=== PATIENT | female | born 1940 | race Caucasian/White ===

== ENCOUNTER 2021-11-08 15:25 | Outpatient (RCR) | payer MEDICARE, OTHER | END 2021-11-10 | disposition home or self-care (01) | LOC: COL.CR | DX: J44.9 Chronic obstructive pulmonary disease, unspecified (principal) ==

== ENCOUNTER 2021-11-23 17:45 | Emergency (ER) | payer MEDICARE, OTHER ==
[~2021-11-23] VITALS: Ht 160 cm; Wt 75.9 kg
[2021-11-23 17:52] VITALS: TEMP 98.2
[2021-11-23 18:27] LABS: BASO # 0.1 K/mm3 (0.0-0.2); BASO % 0.6 % (0.0-2.0); EOS # 0.6 K/mm3 (0.0-0.7); GRAN # 8.5 K/mm3 (1.4-6.5); GRAN % 71.9 % (42.2-75.2); HEMATOCRIT 32.6 % (37.0-47.0); HEMOGLOBIN 10.2 g/dl (12.5-16.0); LYMPH # 1.7 K/mm3 (1.2-3.4); LYMPH % 14.2 % (20.0-51.0); MEAN CELL VOLUME 95 fl (80.0-100.0); MEAN CORPUSCULAR HEMOGLOBIN 30 pg (27-31); MEAN CORPUSCULAR HGB CONC 31 g/dl (33.0-37.0); MEAN PLATELET VOLUME 11.5 fl (7.4-10.4); MONO # 0.9 K/mm3 (0.1-0.6); PLATELET COUNT 268 K/mm3 (130-400); RED BLOOD COUNT 3.43 M/mm3 (4.10-5.30); REDCELL DISTRIBUTION WIDTH-CV 13.2 % (11.5-14.5)
[2021-11-23 18:31] LABS: INR 1.2 (0.8-3.0); PROTHROMBIN TIME 13.9 SECONDS (9.7-12.8)
[2021-11-23] MEDS ORDERED: SYNTHROID0.05 MG/TA PO (18:38)
[2021-11-23] MEDS ORDERED: LASIX 40MG TABL40 MG PO (18:39)
[2021-11-23] MEDS ORDERED: KAPSPARGO SPRI100 MG PO (18:39)
[2021-11-23] MEDS ORDERED: XARELTO15 MG PO (18:39)
[2021-11-23] MEDS ORDERED: LIPITOR 40MG TA40 MG PO (18:40)
[2021-11-23] MEDS ORDERED: NITROSTAT0.4 MG/TAB SL (18:40)
[2021-11-23] MEDS ORDERED: NEURONTIN300 MG/CAP PO (18:41)
[2021-11-23] MEDS ORDERED: COZAAR 50MG50 MG/TAB PO (18:41)
[2021-11-23] MEDS ORDERED: ASPIRIN 81M81 MG/TA2 PO (18:41)
[2021-11-23] MEDS ORDERED: TRELEGY ELLIPT1 EACH IH (18:42)
[2021-11-23] MEDS ORDERED: ALBUTEROL0.83 MG/ML IH (18:42)
[2021-11-23] MEDS ORDERED: ANORO IH (18:42)
[2021-11-23 18:49] LABS: BILIRUBIN,TOTAL 0.4 mg/dL (0.2-1.2); CALCIUM 9.9 mg/dL (8.4-10.2); CREATININE, serum 1.99 mg/dL (0.57-1.11); POTASSIUM 4.6 mmol/L (3.5-4.5); TOTAL PROTEIN 6.5 gm/dL (6.2-8.1)
[2021-11-23 19:51] VITALS: BP 126/73; PULSE 58
== END 2021-11-23 20:10 | disposition home or self-care (01) ==
LOC: COL.ER 17:45
PROVIDERS: Physician Assistant
DX: K92.1 Melena (principal); J44.9 Chronic obstructive pulmonary disease, unspecified; Z99.81 Dependence on supplemental oxygen; Z87.891 Personal history of nicotine dependence
CPT/HCPCS: J7030

== ENCOUNTER 2021-11-26 14:25 | Outpatient (RCR) | payer MEDICARE, OTHER ==
[~2021-11-26 14:25] MED LIST: ALBUTEROL0.83 MG/ML IH; ANORO IH; ASPIRIN 81M81 MG/TA2 PO; COZAAR 50MG50 MG/TAB PO; KAPSPARGO SPRI100 MG PO; LASIX 40MG TABL40 MG PO; LIPITOR 40MG TA40 MG PO; NEURONTIN300 MG/CAP PO; NITROSTAT0.4 MG/TAB SL; SYNTHROID0.05 MG/TA PO; TRELEGY ELLIPT1 EACH IH; XARELTO15 MG PO
[2021-11-27] MEDS ORDERED: BASAGLAR K100 UNIT/1 SQ (19:18)
[2021-11-27] MEDS ORDERED: HUMALOGKP50/50 SQ (19:18)
[2021-11-27] MEDS ORDERED: HUMALOG100 U/ML SQ (19:19)
[2021-11-27] MEDS ORDERED: TRULICITY4.5 MG/0.5 SQ (19:19)
== END 2021-12-03 07:13 | disposition home or self-care (01) ==
LOC: COL.CR 14:25
DX: J44.9 Chronic obstructive pulmonary disease, unspecified (principal)
CPT/HCPCS: J0330; J2370; J2704

== ENCOUNTER 2021-11-27 14:53 | Inpatient (IN) | payer MEDICARE, OTHER ==
[~2021-11-27] VITALS: Ht 160 cm; Wt 83.2 kg
[2021-11-27 15:49] LABS: BASO % 0.5 % (0.0-2.0); EOS # 0.4 K/mm3 (0.0-0.7); EOS % 4.9 % (0.0-4.0); GRAN # 6.1 K/mm3 (1.4-6.5); GRAN % 69.5 % (42.2-75.2); LYMPH # 1.5 K/mm3 (1.2-3.4); LYMPH % 17.4 % (20.0-51.0); MEAN CELL VOLUME 97 fl (80.0-100.0); MEAN CORPUSCULAR HGB CONC 31 g/dl (33.0-37.0); MEAN PLATELET VOLUME 11.4 fl (7.4-10.4); MONO # 0.7 K/mm3 (0.1-0.6); MONO % 7.5 % (1.7-9.3); PLATELET COUNT 227 K/mm3 (130-400); RED BLOOD COUNT 2.59 M/mm3 (4.10-5.30); REDCELL DISTRIBUTION WIDTH-CV 13.6 % (11.5-14.5)
[2021-11-27 15:50] LABS: HEMATOCRIT 25.2 % (37.0-47.0); HEMOGLOBIN 7.8 g/dl (12.5-16.0); MEAN CORPUSCULAR HEMOGLOBIN 30 pg (27-31)
[2021-11-27 16:03] LABS: INR 1.3 (0.8-3.0); PROTHROMBIN TIME 14.5 SECONDS (9.7-12.8)
[2021-11-27 16:06] LABS: BILIRUBIN,TOTAL 0.3 mg/dL (0.2-1.2); CALCIUM 9.3 mg/dL (8.4-10.2); CREATININE, serum 1.7 mg/dL (0.57-1.11); POTASSIUM 4.7 mmol/L (3.5-4.5); TOTAL PROTEIN 5.9 gm/dL (6.2-8.1)
[2021-11-27] MEDS ORDERED: HUMALOGKP50/50 SQ (19:18)
[2021-11-27] MEDS ORDERED: BASAGLAR K100 UNIT/1 SQ (19:18)
[2021-11-27] MEDS ORDERED: TRULICITY4.5 MG/0.5 SQ (19:19)
[2021-11-27] MEDS ORDERED: HUMALOG100 U/ML SQ (19:19)
[2021-11-27 20:17] VITALS: BP 108/46; PULSE 56; TEMP 97.5
[2021-11-27 23:31] VITALS: BP 123/48; PULSE 65; TEMP 97.9
[2021-11-28] VITALS (7 sets, daily range): BP systolic 107–128; BP diastolic 34–95; PULSE 51–65; TEMP 97.4–98.7
[2021-11-28 00:37] LABS: HEMATOCRIT 23.6 % (37.0-47.0); HEMOGLOBIN 7.2 g/dl (12.5-16.0)
[2021-11-28 00:49] LABS: CALCIUM 8.9 mg/dL (8.4-10.2); CREATININE, serum 1.67 mg/dL (0.57-1.11); POTASSIUM 4.3 mmol/L (3.5-4.5)
--- NOTE | 2021-11-28 06:01 | NUR ---
END OF SHIFT: PATIENT RESTED QUIETLY THIS SHIFT. PATIENT RECEIVED NO PRN MEDICATIONS. PATIENT HAD EPISODE WHERE PATIENT FELT BLOOD SUGAR WAS LOW. ACCUCHECK TAKEN AND BLOOD SUGAR WITHIN NORMAL LIMITS. PATIENT NOTED TO BE BRADYCARDIC ALL NIGHT. PATIENT DENIED FEELING DIZZY OR LIGHTHEADED. PATIENT NPO AT MIDNIGHT FOR POSSIBLE DIAGNOSTIC PROCEDURES.
[2021-11-28 06:10] LABS: BASO % 0.4 % (0.0-2.0); EOS # 0.6 K/mm3 (0.0-0.7); EOS % 7.4 % (0.0-4.0); GRAN % 65.3 % (42.2-75.2); LYMPH # 1.5 K/mm3 (1.2-3.4); LYMPH % 19.3 % (20.0-51.0); MEAN CELL VOLUME 97 fl (80.0-100.0); MEAN CORPUSCULAR HGB CONC 31 g/dl (33.0-37.0); MEAN PLATELET VOLUME 11.8 fl (7.4-10.4); MONO # 0.6 K/mm3 (0.1-0.6); MONO % 7.3 % (1.7-9.3); PLATELET COUNT 203 K/mm3 (130-400); RED BLOOD COUNT 2.42 M/mm3 (4.10-5.30); REDCELL DISTRIBUTION WIDTH-CV 13.9 % (11.5-14.5)
[2021-11-28 06:31] LABS: HEMATOCRIT 23.5 % (37.0-47.0); HEMOGLOBIN 7.2 g/dl (12.5-16.0); MEAN CORPUSCULAR HEMOGLOBIN 30 pg (27-31)
--- NOTE | 2021-11-28 09:35 | NUR ---
Alarm Security Or Surveillance Monitor met with patient to discuss discharge planning. Patient lives in [place] with her , Geo (ph#[phone]) and advised she moved here from [place] in April. Patient sees Dr. Siddiqi for primary care and gets her medications from [facility] in [facility]. Patient reports some of her medications are expensive so she is working on applying for assistance through the medication manufacturers, which she had set up in [place]. Patient uses home oxygen from [facility] and also has a rollator at home, although she reports she seldom uses it. Patient is mostly independent with ADLS but reports her does help her bathe. Patient states she believes she has DPOA-HC that designates her , Geo. Patient plans to return home at time of discharge. Discharge Plan: Home
--- NOTE | 2021-11-28 12:01 | NUR ---
PATIENT ALERT AND ORIENTED X4. VSS. PATIENT DENIES PAIN. PATIENT NPO DUE TO EGD THIS AFTERNOON. NS RUNNING AT 125ML/HOUR IN LEFT HAND. CONSENT SIGNED AND ON CHART. PATIENT ON 2L O2 PER NC. PATIENT RESTING IN BED WITH CALL LIGHT NEAR.
--- NOTE | 2021-11-28 12:42 | NUR ---
Initial visit; Patient thanked Hides Inspector for looking in on her and offering prayer and God's blessings. Hides Inspector will keep patient in her prayers and follow up while Ashanti is a patient.
--- NOTE | 2021-11-28 13:07 | NUR ---
PATIENT OFF OF FLOOR FOR EGD
[2021-11-28 19:19] LABS: HEMATOCRIT 24.6 % (37.0-47.0); HEMOGLOBIN 7.4 g/dl (12.5-16.0)
--- NOTE | 2021-11-28 20:00 | NUR ---
PT IN BED, DRINKING GOLYTELY PREP. HAS OXYGEN ON AT 2L/NC, CHRONIC. SHORT OF BREATH WITH ACTIVITY. IV SITE TO LEFT FOREARM, FLUSHES WELL. WILL BE NPO AT MIDNIGHT.
[2021-11-29] VITALS (7 sets, daily range): BP systolic 100–149; BP diastolic 35–64; PULSE 57–71; TEMP 97.5–98.7
--- NOTE | 2021-11-29 | NUR ---
PT NPO EXCEPT BOWEL PREP.
--- NOTE | 2021-11-29 03:12 | NUR ---
PT REPORTS NAUSEA. ZOFRAN 4MG IVP GIVEN. HAS IV SITE TO LEFT FOREARM, FLUSHES WITHOUT PROBLEM.
--- NOTE | 2021-11-29 03:15 | NUR ---
PT UP TO BSC, REPORTS NAUSEA, HAVING LOOSE STOOLS FROM COLON PREP, WATER STILL DK RED/BROWN. ENCOURAGED PT TO KEEP DRINKING PREP.
--- NOTE | 2021-11-29 05:06 | NUR ---
NOTIFIED DR INFANTE OF PTS PREP RESULTS, WILL PUSH PTS COLONOSCOPY TO END MORNING. NOTIFIED OCCUP THER GURWINDER GRANDE.
--- NOTE | 2021-11-29 05:54 | NUR ---
INFORMED PT OF NEW TIME FOR COLONOSCOPY AND SHE NEEDS TO HAVE PREP COMPLETED BY 0900, PT REPORTS DIFFICULTY BREATHING WITH ALL THE ACTIVITY OF GETTING UP TO THE BSC. OXYGEN ON AT 2.5L.
--- NOTE | 2021-11-29 06:01 | NUR ---
PT UP TO BSC, HAS SMALL INCONTINENCE OF STOOL IN PANTIES.
[2021-11-29 06:12] LABS: BASO % 0.2 % (0.0-2.0); EOS # 0.6 K/mm3 (0.0-0.7); EOS % 5.1 % (0.0-4.0); GRAN # 9.7 K/mm3 (1.4-6.5); GRAN % 78.7 % (42.2-75.2); LYMPH % 8.2 % (20.0-51.0); MEAN CELL VOLUME 100 fl (80.0-100.0); MEAN CORPUSCULAR HGB CONC 31 g/dl (33.0-37.0); MEAN PLATELET VOLUME 11.9 fl (7.4-10.4); MONO # 0.9 K/mm3 (0.1-0.6); MONO % 7.2 % (1.7-9.3); PLATELET COUNT 197 K/mm3 (130-400); RED BLOOD COUNT 2.35 M/mm3 (4.10-5.30); REDCELL DISTRIBUTION WIDTH-CV 14.3 % (11.5-14.5)
[2021-11-29 06:28] LABS: HEMATOCRIT 23.5 % (37.0-47.0); HEMOGLOBIN 7.2 g/dl (12.5-16.0); MEAN CORPUSCULAR HEMOGLOBIN 31 pg (27-31)
[2021-11-29 06:30] LABS: CALCIUM 8.6 mg/dL (8.4-10.2); CREATININE, serum 1.41 mg/dL (0.57-1.11); POTASSIUM 4.6 mmol/L (3.5-4.5)
--- NOTE | 2021-11-29 11:36 | NUR ---
PATIENT OFF OF FLOOR FOR PROCEDURE
--- NOTE | 2021-11-29 12:05 | NUR ---
PATIENT ALERT AND ORIENTED X4. VSS. PATIENT ON 4L PER NC. PATIENT FINISHING BOWEL PREP. PATIENT DENIES PAIN AT THIS TIME. IV TO LEFT WRIST FLUSHES WELL. PATIENT RESTING IN BED WITH CALL LIGHT NEAR.
--- NOTE | 2021-11-29 21:36 | NUR ---
Patient assessed around 2014. Patient drowsy, but awakens easily to verbal stimuli. Denies pain and discomfort. On oxygen at 4 L/min via NC. Continues to have shortness of breath with exertion. LS CTA in upper lobes, diminished in lwoer. Patient voices no questions, needs, or concerns at this time. In bed with call light within reach.
--- NOTE | 2021-11-29 22:40 | NUR ---
Patient with increased SOB after using bedside commode at about 2215. SPO2 75% on oxygen at 4 L/min via NC. Increased to 15 L, put on high flow nasal cannula. Notified RT and SIMONE Castro. SPO2 increased to 90s after about 3 minutes, titrated down on oxygen to 6 L/min. Gloria in to see patient, new order for Lasix 20 mg IV. IV site to left wrist painful. New one started to right forearm, and given Lasix per orders. Purewick put in place to decrease exertion. New order for CXR, called Radiology and notified of order. Patient in bed with call light within reach. Voices no further questions, needs, or concerns at this time.
[2021-11-30] VITALS (453 sets, daily range): BP systolic 101–146; BP diastolic 35–65; PULSE 58–80; TEMP 98.4–100.2; O2SAT 76–100
[2021-11-30 05:50] LABS: ARTERIAL BLD GAS O2 SATURATION 93.7 % (92-100); ARTERIAL BLD GAS TCO2 CT 38.8; ARTERIAL BLOOD GAS BASE EXCESS 6.8 (-2-2); ARTERIAL BLOOD GAS HCO3 35.9 meq/L (22-26); ARTERIAL BLOOD GAS PO2 75.8 mmHg (80-100)
[2021-11-30 05:51] LABS: ARTERIAL BLOOD GAS PCO2 93.1 mmHg (35-45)
[2021-11-30 05:57] LABS: COLLECTION METHOD CATHETER
[2021-11-30 06:07] LABS: INR 1.1 (0.8-3.0); PROTHROMBIN TIME 12.1 SECONDS (9.7-12.8)
[2021-11-30 06:08] LABS: BASO % 0.2 % (0.0-2.0); EOS # 0.2 K/mm3 (0.0-0.7); EOS % 1.7 % (0.0-4.0); GRAN # 7.6 K/mm3 (1.4-6.5); GRAN % 78.8 % (42.2-75.2); LYMPH # 1.1 K/mm3 (1.2-3.4); LYMPH % 11.3 % (20.0-51.0); MEAN CELL VOLUME 101 fl (80.0-100.0); MEAN CORPUSCULAR HGB CONC 30 g/dl (33.0-37.0); MEAN PLATELET VOLUME 11.1 fl (7.4-10.4); MONO # 0.7 K/mm3 (0.1-0.6); MONO % 7.1 % (1.7-9.3); PLATELET COUNT 232 K/mm3 (130-400); REDCELL DISTRIBUTION WIDTH-CV 14.4 % (11.5-14.5)
[2021-11-30 06:22] LABS: MUCOUS Present (NOT PRESENT); SQUAMOUS EPITHELIAL 0-2 /hpf (0-10); URINE BACTERIA Rare /hpf (NONE SEEN); URINE RBC 0-2 /hpf (0-2)
[2021-11-30 06:25] LABS: URINE APPEARANCE Clear (CLEAR/HAZY); URINE COLOR Yellow (YELLOW)
[2021-11-30 06:26] LABS: URINE BLOOD Negative (NEGATIVE); URINE GLUCOSE Negative (NEGATIVE); URINE KETONE Negative (NEGATIVE); URINE NITRATE Negative (NEGATIVE); URINE PROTEIN(semi-quant) Negative (NEGATIVE); URINE UROBILINOGEN 0.2 E.U/dL (0.2-1.0)
[2021-11-30 06:35] LABS: CALCIUM 8.7 mg/dL (8.4-10.2); CREATININE, serum 1.55 mg/dL (0.57-1.11); MAGNESIUM 2.1 mg/dL (1.6-2.6); POTASSIUM 4.7 mmol/L (3.5-4.5)
[2021-11-30 06:38] LABS: HEMATOCRIT 22.3 % (37.0-47.0); HEMOGLOBIN 6.6 g/dl (12.5-16.0); MEAN CORPUSCULAR HEMOGLOBIN 30 pg (27-31)
--- NOTE | 2021-11-30 06:39 | NUR ---
Patient with increased drowsyness, only saying 1-3 words, increased work of breathing. VSS. BS ok. Called SIMONE Castro called and updated. New orders received. Joe placed due to minimal urine output, 350 out. Orders for EKG: no changes from previous. CT ordered, but cancelled after ABG results back with CO2 in the 90s. Patient put on BIPAP. SIMONE Castro called and spoke to Geo, phone number . Updated on patient stauts. Asked about intubation, and stated that he was ok with intubation for short term for patient. Hemoglobin back at 6.6 this morning. Order for 1 unit of blood. Patient in bed with call light within reach. Bed alarm on.
[2021-11-30 08:20] LABS: ARTERIAL BLD GAS O2 SATURATION 90.8 % (92-100); ARTERIAL BLD GAS TCO2 CT 37.5; ARTERIAL BLOOD GAS BASE EXCESS 6.2 (-2-2); ARTERIAL BLOOD GAS HCO3 34.9 meq/L (22-26); ARTERIAL BLOOD GAS pH 7.23 (7.35-7.45)
[2021-11-30 08:24] LABS: ARTERIAL BLOOD GAS PCO2 85.3 mmHg (35-45)
[2021-11-30 12:02] LABS: HEMATOCRIT 25.4 % (37.0-47.0); HEMOGLOBIN 7.6 g/dl (12.5-16.0)
--- NOTE | 2021-11-30 12:17 | NUR ---
Discussed code status with patient's and DPOA. Patient is a DNR/DNI per DPOA.
--- NOTE | 2021-11-30 12:40 | NUR ---
PT ARRIVED TO ICU 7 FROM SURGICAL WITH HARJINDER PACKER, RT AND LIFE SKILLS WORKER. PT ON BIPAP 28/11. PT OPENS EYES TO VERBAL & PHYSICAL STIMULI, FALLS BACK TO SLEEP. PT HOOKED UP TO ICU MONITORS. AND SON AT BEDSIDE. ASSESSMENT COMPLETED.
[2021-11-30 15:42] LABS: ARTERIAL BLOOD GAS HCO3 33.3 meq/L (22-26); ARTERIAL BLOOD GAS PCO2 72.9 mmHg (35-45); ARTERIAL BLOOD GAS pH 7.27 (7.35-7.45)
[2021-11-30 15:43] LABS: ARTERIAL BLD GAS O2 SATURATION 92.2 % (92-100); ARTERIAL BLD GAS TCO2 CT 35.6; ARTERIAL BLOOD GAS BASE EXCESS 5.5 (-2-2)
--- NOTE | 2021-11-30 20:24 | NUR ---
GAVE HAND OFF REPORT TO DUANE GRANDE. PT TO BE TRANDFERED TO ROOM 308
[2021-11-30 20:35] LABS: HEMATOCRIT 24.2 % (37.0-47.0); HEMOGLOBIN 7.4 g/dl (12.5-16.0)
--- NOTE | 2021-11-30 21:36 | NUR ---
PATIENT ARRIVED BY BED AND TRANSFERRED TO BED ASSISTED BY ICU. PATIENT IS UNRESPONSIVE TO ANY COMMUNICATION FROM THIS NURSE; UNABLE TO VERIFY MEDICATIONS AND ALLERGIES. PATIENT IS ON BPAP AT 18/8 AND TOLERATING WELL WITH O2 AT 95%. PATIENT MOANS IN RESPONSE TO VERBAL AND TOUCH STIMULATION. PATIENT HAS NOT OPENED EYES FOR THIS NURSE.
--- NOTE | 2021-11-30 21:58 | NUR ---
PATIENT REMAINS UNRESPSONSIVE TO NURSE ASESSSMENT AND QUESTIONS. PATIENT IS AROUSABLE BUT CLOSES EYES WHEN SPEAKING DIRECTLY TO HER.
[2021-12-01 03:08] LABS: ARTERIAL BLD GAS O2 SATURATION 98.6 % (92-100); ARTERIAL BLD GAS TCO2 CT 35.2; ARTERIAL BLOOD GAS HCO3 33.1 meq/L (22-26); ARTERIAL BLOOD GAS pH 7.31 (7.35-7.45)
[2021-12-01 03:10] LABS: ARTERIAL BLOOD GAS PCO2 67.3 mmHg (35-45)
[2021-12-01 03:11] LABS: ARTERIAL BLOOD GAS PO2 133.1 mmHg (80-100)
[2021-12-01 04:34] VITALS: BP 123/40; PULSE 63; TEMP 99.6
--- NOTE | 2021-12-01 04:50 | NUR ---
PATIENT BIPAP MACHINE KEEPS ALARMING. THIS NURSE FINDS PATIENT ATTEMPTING TO TAKE MASK OFF OF FACE. THIS NURSE GIVES PATIENT EDUCAITON ON IMPORTANCE OF KEEPING MASK ON AND HANDS AWAY FROM MASK, TO WHICH PATIENT REPLIED "OKAY" but CONTINUES TO PULL ON MASK. PATIENT DOES NOT OPEN EYES WHEN SPOKEN TO. PATIENT ENCOURAGED AGAIN TO KEEP FINGERS OUT OF MASK. CALL LIGHT IS WITHIN REACH OF PATIENT AND PATIENT ENCOURAGED TO CALL WITH ANY NEEDS OR CONCERNS.
--- NOTE | 2021-12-01 05:31 | NUR ---
PATIENT IS RESTING QUIETLY IN BED WITH EYES CLOSED AND NO SIGNS OF PAIN OR CONCERNS. PATIENT HAS KEPT HANDS AWAY FROM BIPAP MASK SINCE LAST NOTE. PATIENT HAS CALL LIGHT WITHIN REACH.
[2021-12-01 06:08] LABS: BASO % 0.1 % (0.0-2.0); EOS # 0.2 K/mm3 (0.0-0.7); EOS % 2.2 % (0.0-4.0); GRAN # 5.2 K/mm3 (1.4-6.5); GRAN % 75.3 % (42.2-75.2); LYMPH # 0.9 K/mm3 (1.2-3.4); LYMPH % 13.2 % (20.0-51.0); MEAN CELL VOLUME 102 fl (80.0-100.0); MEAN CORPUSCULAR HGB CONC 30 g/dl (33.0-37.0); MEAN PLATELET VOLUME 11.6 fl (7.4-10.4); MONO # 0.6 K/mm3 (0.1-0.6); MONO % 8.8 % (1.7-9.3); PLATELET COUNT 182 K/mm3 (130-400); RED BLOOD COUNT 2.39 M/mm3 (4.10-5.30)
[2021-12-01 06:14] LABS: HEMATOCRIT 24.4 % (37.0-47.0); HEMOGLOBIN 7.2 g/dl (12.5-16.0); MEAN CORPUSCULAR HEMOGLOBIN 30 pg (27-31)
[2021-12-01 06:51] LABS: ALBUMIN 2.7 gm/dL (3.4-4.8); CALCIUM 9.1 mg/dL (8.4-10.2); CREATININE, serum 1.64 mg/dL (0.57-1.11); MAGNESIUM 2.3 mg/dL (1.6-2.6); PHOSPHOROUS 2.7 mg/dL (2.3-4.7); POTASSIUM 4.6 mmol/L (3.5-4.5)
[2021-12-01 07:48] VITALS: BP 157/79; PULSE 59; TEMP 98.5
--- NOTE | 2021-12-01 08:41 | NUR ---
PT RESTING IN BED. PO MORNING MEDICATIONS HELD DUE TO NPO. SHIFT ASSESSMENT COMPLETED. PT CURRENTLY BREATHING ON BIPAP. PT AROUSABLE, OPENS EYES TO SPEECH, GRUNTS IN RESPONSE TO SOME QUESTIONS. PT DOES NOT FOLLOW VERBAL COMMANDS, NO HAND SITE ENGINEER OR BLE MOVEMENT. MIDDLETON DRAINING CLEAR YELLOW URINE. WILL CONTINUE TO MONITOR.
[2021-12-01 11:29] VITALS: BP 140/49; PULSE 69; TEMP 98.7
--- NOTE | 2021-12-01 13:17 | NUR ---
RT CALLED TO BEDSIDE FOR ASSISTANCE ON BIPAP INTOLERANCE. PT BEGAN REMOVING THE BIPAP DUE TO A "SORE EAR" AND FEELING MORE RESPONSIVE. ADVISED AT LEAST 16 HOURS OF BIPAP USAGE, WHICH CAN BE DONE DURING THE NIGHT. WILL PROMOTE BIPAP USAGE AT NIGHT TO PATIENT/PATIENT FAMILY AND SUPERVISOR GROUNDS RT.
[2021-12-01 15:17] VITALS: BP 137/33; PULSE 70; TEMP 97.4
--- NOTE | 2021-12-01 18:53 | NUR ---
PATIENT LAYING IN BED ON BIPAP AT THIS TIME. DENIES PAIN, NEEDS OR CONCERNS AT THIS TIME. CALL LIGHT IS WITHIN IN REACH OF PATIENT AND PATIENT IS ENCOUARGED TO CALL WITH ANY NEEDS OR CONCERNS.
--- NOTE | 2021-12-01 19:23 | NUR ---
TX GIVEN INLINE WITH BIPAP, TOLERATED WELL. FIO2 DECREASED TO 40% AT THIS TIME AND TOLERATING WELL. MASK ADJUSTED FOR MINIMAL LEAK.
[2021-12-01 21:18] VITALS: BP 126/55; PULSE 67; TEMP 98.8
[2021-12-01 23:55] VITALS: BP 110/46; PULSE 64; TEMP 98.6
[2021-12-02 05:24] VITALS: BP 130/73; PULSE 62; TEMP 97.4
--- NOTE | 2021-12-02 08:04 | NUR ---
PT LAYING IN BED. MORNING MEDICATIONS GIVEN. SHIFT ASSESSMENT COMPLETED. PT ANSWERING QUESTIONS APPROPRIATELY AND FOLLOWING COMMANDS. PT REPORTING PAIN AND DISCOMFORT, YET GRABS RAILS WHEN NURSING STAFF ATTEMPTS TO REPOSITION. PT WAS BREATHING ON 6L OXYMASK UPON ASSESSMENT BUT STATES SHE FEELS SHE CANNOT CATCH BREATH, RT NOTIFIED AND PLANS TO PLACE PT BACK ON BIPAP. MIDDLETON CATHETER DRAINING WELL. WILL CONTINUE TO MONITOR.
[2021-12-02 08:22] VITALS: BP 163/40; PULSE 71; TEMP 97.7
--- NOTE | 2021-12-02 09:54 | NUR ---
PT COMPLAINING OF PAIN TO BACK. ATTEMPTED TO GIVE PT TYEONOL PER eMAR. PT HAVING DIFFICULTY TAKING DRINKS DUE TO HER MOUTH BEING TOO DRY. SHE STATES SHE "GIVES UP." DR. NORRIS NOTIFIED, THIS RN GIVEN ORDERS TO CONSULT PALLIATIVE CARE, NAS NOTIFIED. WILL AWAIT FURTHER ORDERS.
--- NOTE | 2021-12-02 10:06 | NUR ---
Met with patient, her , and children and bedside. Patient attempted to sit up at side of bed with oxymask and SpO2 dropped significantly. Patient helped back to right side with BiPAP on and SpO2 rebounded to 100%. Discussed with family options like [facility] or comfort care/hospice. They confirmed patient is DNR/DNI but would like to see if she is a [facility] candidate before deciding anything else. Primary RN and SW notified.
[2021-12-02 11:17] VITALS: BP 185/40; PULSE 71; TEMP 97.4
--- NOTE | 2021-12-02 12:09 | NUR ---
Primary nurse asked that I talk with family and patient about hospice options as she is voicing her wishes to stop treatment. Family tearful and not very talkative but open to looking at hospice options. Provided MCR list of hospice agencies in [place] as well as vendor pamphlets for them each. Provided my contact information as well.
--- NOTE | 2021-12-02 13:39 | NUR ---
Instructional Technologist collaborated with Hospitalist who requested a [facility] Evaluation. SW contacted Jaylon at [facility] and faxed a referral. Jaylon advised that patient meets criteria. Palliative consult placed and Lilian Palliative RN advised that patient and family are discussing placement at [facility] vs hospice options. IZA will continue to follow and updated Jaylon that palliative consult placed. Jaylon to continue to follow.
--- NOTE | 2021-12-02 14:48 | NUR ---
Checked in on at bedside. Patient sleeping upon entry to room. states that if they decide on hospice, it will need to be in a facility as he cannot care for her at home. states that the grandchildren are coming in this evening and he will discuss his thought on moving to comfort care with his children at that time. States he hates to see the patient in so much pain. Advised him to let staff know if he feels she needs more medications and again offered to answer any questions that arise. Current plan is to talk again tomorrow about [facility] versus hospice/comfort care.
--- NOTE | 2021-12-02 19:00 | NUR ---
PT IS LAYING IN BED AT THIS TIME WITH THE BIPAP ON. PT IS NOT FIGHTING THE BIPAP AND IS RESTING COMFORTABLY. THE PATIENT'S IS AT BEDSIDE AND WILL STAY THE NIGHT WITH HER THIS EVENING THEY ARE LEANING TOWARD COMFORT CARE TOMORROW.
[2021-12-02 20:00] VITALS: BP 142/41; PULSE 58; TEMP 98.3
--- NOTE | 2021-12-02 21:00 | NUR ---
Pt has medications due, however the family at bedside is refusing all medications for the patient. The patient is minimally responsive at this time. Bipap in place.
[2021-12-03 00:01] VITALS: BP 147/36; PULSE 60; TEMP 98.2
--- NOTE | 2021-12-03 01:59 | NUR ---
PT HAS BEEN SLEEPING COMFORTABLY. HAS BEEN AT BEDSIDE THROUGH THE NIGHT. DECLINES PATIENT CARES D/T PATIENT SLEEPING. FAMILY IS PLANNING ON MAKING THE PATIENT COMFORT CARE THIS MORNING AFTER DOCTOR ROUNDS.
[2021-12-03 04:40] VITALS: BP 139/48; PULSE 60; TEMP 98.1
--- NOTE | 2021-12-03 05:56 | NUR ---
PT'S FAMILY AT BEDSIDE. THE PATIENT IS FAR MORE ALERT AND SPEAKING THAN SHE HAS BEEN IN A FEW DAYS. SHE IS ON 55L AIRVO AT THIS TIME, AND THE FAMILY IS ENJOYING BEING WITH HER. PLANS FOR [facility] VS [facility] TO BE MADE THIS MORNING. IT SHOULD BE NOTED THAT THE WHO WAS AT BEDSIDE THROUGH THE NIGHT REFUSED MEDICATIONS AND VITAL SIGNS AND BLOOD SUGARS ON THE PATIENT'S BEHALF. NO OTHER CONCERNS AT THIS TIME. FAMILY REMAINS AT BEDSIDE.
[2021-12-03 07:45] VITALS: BP 124/34
--- NOTE | 2021-12-03 08:59 | NUR ---
Met with patient and family at bedside. They confirmed patient would like to transition to comfort care and hospice. Family would like [facility] but is open to other options as necessary. Will discuss with SW to provide those options. Care team updated on decision for comfort care as well.
--- NOTE | 2021-12-03 09:25 | NUR ---
Clinicals sent via secure email to [facility] as requested from phone call; no immediate opening but will essentially put patient on list. Spoke with son at bedside. Patient on phone with family so not ready to remove airvo yet but will let us know. Son asked about room and board cost for [facility] and [facility]. SW looking into that.
--- NOTE | 2021-12-03 10:33 | NUR ---
PER RN, WE ARE PROCEEDING WITH COMFORT CARE MEASURES. AIRVO WAS REMOVED ABOUT 0950, AND COMFORT CARE MEDICATIONS WERE ADMINISTERED. 2L WAS PLACED ON PATIENT FOR COMFORT.
--- NOTE | 2021-12-03 10:52 | NUR ---
Follow-up visit; Patient in pain, waiting for medication, nurse arrived as Hockey Scout was offering prayer. Family all present offering love and support for Janeen and her . Hockey Scout mentioned that she would be available for Janeen and family at any time. Family thanked Hockey Scout.
--- NOTE | 2021-12-03 11:30 | NUR ---
PATIENT RESTING COMFORTABLY. PULSE OX TAKEN OFF PER FAMILY REQUEST. LAST O2 SAT NOTICED WAS 57% ON 2LNC.
--- NOTE | 2021-12-03 12:30 | NUR ---
ASYSTOLE ON MONITOR. 2 NURSE CHECK, NO HEART OR BREATH SOUNDS PRESENT, NO PULSE FELT. COVERED PATIETN WITH COMFORT QUILT. SPOKE WITH FAMILY. FAMILY AWARE TO INFORM ME WHEN THEY ARE READY FOR ME TO COME IN. PALLIATIVE CARE NURSE, PA, HOSPITALIST, CHARGE AND EVENT MANAGER ALL AWARE.
--- NOTE | 2021-12-03 12:39 | NUR ---
Puppy Sitter collaborated with Lilian Palliative RN that patient has been put on comfort care. Family interested in placement and referrals were sent to [facility], [facility], and [facility]. Lilian notified IZA that patient passed with family at bedside. IZA notified facilities.
--- NOTE | 2021-12-03 12:58 | NUR ---
Call to the floor by nursing staff to make this manager warehouse aware of patients at [phone]. Call placed to [facility]. Patient is not a candidate for tissue donation due to age but may be for [facility]. Will await call from [facility] before any further steps. Confirmation # [id number]. Family leaving. Spoke with son and regarding home choices. Son stated that his mother wanted to be cremated. Offered options of homes here in [place]. Family chose [facility]. Call made to them to make aware. Family left hospital at this time.
--- NOTE | 2021-12-03 18:30 | NUR ---
PER REPORT PT IS CANDIDATE FOR CORNEAL TRANSPLANT. THE TRANSPLANT TEAM IS PLANNING TO COME AND TAKE CORNEAS AT BEDSIDE. WILL CONTINUE TO KEEP EYES LUBRICATED WITH SALINE DROPS. PLANS TO UPDATE FAMILY WHEN HOME TAKES THE PATIENT OUT OF HERE.
--- NOTE | 2021-12-03 18:30 | NUR ---
SALINE PUT ON PATIENTS EYES. RESTING AT 30% ANGLE. NIGHT NURSE GIVEN UPDATE.
--- NOTE | 2021-12-03 23:37 | NUR ---
HOME CALLED AND ON THE WAY.
== END 2021-12-03 12:32 | disposition expired | DRG 377 ==
LOC: COL.ER 14:53 → SURG 18:52 → ICU 11-30 11:58 → MEDICAL 11-30 20:19
PROVIDERS: Internal Medicine; Internal Medicine Gastroenterology; Internal Medicine Sleep Medicine; Nurse Practitioner Family; Student in an Organized Health Care Education/Training Program; ADMIT Internal Medicine
PROC: 0DB68ZX Excision of Stomach, Via Natural or Artificial Opening Endoscopic, Diagnostic (ICD-10-PCS; 2021-11-28)
PROC: 0DBL8ZX Excision of Transverse Colon, Via Natural or Artificial Opening Endoscopic, Diagnostic (ICD-10-PCS; principal; 2021-11-29 07:00)
DX: K57.31 Diverticulosis of large intestine without perforation or abscess with bleeding (principal); J96.21 Acute and chronic respiratory failure with hypoxia; J96.22 Acute and chronic respiratory failure with hypercapnia; N17.9 Acute kidney failure, unspecified; D62 Acute posthemorrhagic anemia; I50.32 Chronic diastolic (congestive) heart failure; Z66 Do not resuscitate; E78.5 Hyperlipidemia, unspecified; Z51.5 Encounter for palliative care; E03.9 Hypothyroidism, unspecified; R07.9 Chest pain, unspecified; E87.5 Hyperkalemia; D64.9 Anemia, unspecified; I25.10 Atherosclerotic heart disease of native coronary artery without angina pectoris; E11.65 Type 2 diabetes mellitus with hyperglycemia; J43.9 Emphysema, unspecified; I13.10 Hypertensive heart and chronic kidney disease without heart failure, with stage 1 through stage 4 chronic kidney disease, or unspecified chronic kidney disease; E11.22 Type 2 diabetes mellitus with diabetic chronic kidney disease; N18.9 Chronic kidney disease, unspecified; D17.5 Benign lipomatous neoplasm of intra-abdominal organs; K64.1 Second degree hemorrhoids; R91.8 Other nonspecific abnormal finding of lung field; K29.70 Gastritis, unspecified, without bleeding; I48.0 Paroxysmal atrial fibrillation; I08.0 Rheumatic disorders of both mitral and aortic valves; Z79.890 Hormone replacement therapy; Z79.4 Long term (current) use of insulin; Z87.01 Personal history of pneumonia (recurrent); Z88.0 Allergy status to penicillin; Z99.81 Dependence on supplemental oxygen; Z79.01 Long term (current) use of anticoagulants; Z87.19 Personal history of other diseases of the digestive system; Z79.82 Long term (current) use of aspirin; Z87.891 Personal history of nicotine dependence
CPT/HCPCS: C9113; J0330; J1756; J1815; J1940; J2060; J2270; J2370; J2405; J2704; J2920; J7030; P9016